=== PATIENT | male | born 1950 | race American Indian/Alaskan Native ===

== ENCOUNTER 2017-07-16 10:06 | Outpatient (CLI) | payer MEDICARE ==
--- NOTE | 2017-07-16 11:40 | Cat Scan Report ---
FINAL REPORT EXAM: CT CHEST WO CON HISTORY: ENCOUNTER FOR SCREENING FOR Malignancy NEOPLASM FOR respiratory organ. TECHNIQUE: CT of chest without IV contrast. Coronal and sagittal reconstructed images provided. PRIORS: None currently available. FINDINGS: Solid and ground-glass scarring with nodularity or nodular scarring in the left upper lung on series 2:25 measures 6.2 mm. Nearby pulmonary nodule on series 2:27 measures with 6.3 mm. Moderate emphysema. Scarring with bronchiectasis along the medial aspect of the left upper lobe. Calcified granuloma in the right upper lung. No pneumothorax. No distinct consolidation. No effusion. No endobronchial lesions. Main pulmonary arteries are unremarkable. No aortic aneurysm. Mild aortic atherosclerotic disease [id number] cardiomegaly. No pericardial effusion. Coronary artery disease. There is no axillary adenopathy. There is no hilar or mediastinal mass or adenopathy. Images of the thyroid are unremarkable. Images of the esophagus are unremarkable. 1.9 cm left adrenal nodule may represent an adenoma or myelolipoma. Right adrenal glands unremarkable. No suspicious osseous lesions on this limited examination of the skeleton. Metastatic disease better evaluated with bone scan. Degenerative changes are present in the spine. Scoliosis. IMPRESSION: Pulmonary nodules left upper lobe. Emphysema. Cardiomegaly. Suspect left adrenal adenoma or myelolipoma. 2017 [employer] GUIDELINES FOR PULMONARY NODULE MANAGEMENT: SOLID MULTIPLE NODULES: LOW risk patient (no significant smoking history, no history of malignancy, and a normal immune system) nodules: < 6 mm - No routine follow up. 6-8 mm - CT at 3-6 months. Then, consider CT at 18-24 months. > 8 mm - CT at 3-6 months. Then, consider CT at 18-24 months. HIGH risk patient, follow-up noncontrast < 6 mm - Optional CT at 12 months. 6-8 mm - CT at 3-6 months. Then, CT at 18-24 months. > 8 mm - CT at 3-6 months. Then, CT at 18-24 months. Low risk patients - minimal or absent history of smoking and or other known risk factors High risk patients - history of smoking or of other known risk factors
== END 2017-07-16 10:07 | disposition home or self-care (01) ==
LOC: CT 10:06
PROVIDERS: ATTEND Internal Medicine
DX: Z12.2 Encounter for screening for malignant neoplasm of respiratory organs (principal); Z13.6 Encounter for screening for cardiovascular disorders; J43.9 Emphysema, unspecified; J84.10 Pulmonary fibrosis, unspecified; R91.1 Solitary pulmonary nodule; I51.7 Cardiomegaly; I70.0 Atherosclerosis of aorta; M47.894 Other spondylosis, thoracic region; I10 Essential (primary) hypertension; J45.909 Unspecified asthma, uncomplicated
CPT/HCPCS: 71250; 93979